=== PATIENT | female | born 1940 | race Caucasian/White ===

== ENCOUNTER 2020-09-18 23:52 | Emergency (ER) | payer MEDICARE, BC ==
[~2020-09-18] VITALS: Ht 165.1 cm; Wt 62.1 kg
--- NOTE | 2020-09-19 00:01 | NUR ---
CALLED PT IN [place]. NO ONE RESPONDED. PER PT IS IN RESTROOM AT THIS TIME.
[2020-09-19 00:09] VITALS: BP 141/78
[2020-09-19] MEDS ORDERED: FLUORESCEIN SODIUM OPHTH 1 EA STRIP ONE (00:56)
[2020-09-19] MEDS ORDERED: FLUORESCEIN SODIUM OPHTH 1 EA STRIP OP ONE (01:00)
[2020-09-19] MEDS ORDERED: TETRACAINE HCL 0.5% OPHTALMIC 15 ML BOTTLE OP ONE (01:00)
== END 2020-09-19 01:08 | disposition home or self-care (01) ==
LOC: ER 09-19 00:01
DX: T15.82XA Foreign body in other and multiple parts of external eye, left eye, initial encounter (principal); W45.8XXA Other foreign body or object entering through skin, initial encounter; Y93.89 Activity, other specified; Y92.89 Other specified places as the place of occurrence of the external cause; Y99.8 Other external cause status
CPT/HCPCS: 99283; J7040